=== PATIENT | male | born 1965 | race Caucasian/White ===

== ENCOUNTER → 2022-02-10 | Outpatient (CLI) | payer OTHER ==
[~2022-02-10] MED LIST: ALPR1; BUSP10; ESZO2; HYDACE10B PO; NAPR500 PO; OXYACE5T PO; PRILOSEC
[2022-02-11 11:06] LABS: Stool Occult Bld Immuno 1 Negative (NEGATIVE)
== END | disposition home or self-care (01) ==
LOC: LAB 04:00 → LAB SHORT 04:00
PROVIDERS: Nurse Practitioner Family
DX: Z12.11 Encounter for screening for malignant neoplasm of colon (principal); D50.8 Other iron deficiency anemias
CPT/HCPCS: G0328